=== PATIENT | female | born 1975 | race Caucasian/White ===

== ENCOUNTER 2023-09-13 22:52 | Emergency (ER) | payer OTHER, SELFPAY ==
[2023-09-14] MEDS ORDERED: KETOROLAC 30 MG/ML INJ ONE (00:30)
[2023-09-14] MEDS ORDERED: NA CHLORIDE 0.9% 1,000 ML ONE (00:30)
[2023-09-14] MEDS ORDERED: ONDANSETRON 4 MG/2 ML VIAL ONE (00:30)
[2023-09-14 00:41] LABS: Absolute Basophils 0.1 K/uL (0-0.5); Absolute Eosinophils 0.4 K/uL (0-0.5); Absolute Lymphocytes (CBC) 1.7 K/uL (0.7-4.9); Absolute Monocytes 0.6 K/uL (0.1-1.3); Absolute Neutrophil 5.3 K/uL (1.8-8.0); Eosinophils % 5.2 % (0-4.4); Hematocrit 34.5 % (36.0-45.0); Hemoglobin 11.2 g/dL (12.0-15.0); Lymphocytes % 21.3 % (15.3-44.8); MCH 26.4 pg (27.0-35.0); MCHC 32.5 g/dL (32.0-36.0); MCV 81.1 fL (80-100); MPV 8.5 fL (7.6-11.3); Monocytes % 7.5 % (3.3-12.3); Nucleated Red Blood Cells % 0.1 % (0-0); Platelets 315 thou/uL (152-406); RBC Red Blood Cell Count 4.26 M/uL (3.86-4.86); Red Cell Distribution Width 17.7 % (12.1-15.2)
[2023-09-14 00:59] LABS: Albumin/Globulin Ratio 0.7 (1.1-1.8); Anion Gap 8.4 mEq/L (5.0-15.0); Bilirubin Total 0.2 mg/dL (0.2-1.0); C-Reactive Protein 28.6 mg/L (<3.00); Globulin 4.2 g/dL (2.3-3.5); Protein, Total 7.2 g/dL (6.4-8.2)
[2023-09-14] MEDS ORDERED: PROMETHAZINE 25 MG TABLET ONE (01:04)
[2023-09-14] MEDS ORDERED: HYDROCODONE/APAP 5/325 MG TAB ONE (01:04)
[2023-09-14 01:07] LABS: Potassium 4.4 mEq/L (3.5-5.1)
[2023-09-14] MEDS ORDERED: METOCLOPRAMIDE 10 MG/2mL INJ ONE (02:11)
[2023-09-14 04:29] LABS: Urine Bacteria None Seen /HPF (<20); Urine Bilirubin NEGATIVE (Negative); Urine Blood 2+ (Negative); Urine Clarity Clear (Clear); Urine Color Light-Yellow (Yellow); Urine Culture Reflex Order REFLEXED; Urine Glucose NEGATIVE (Negative); Urine Ketones NEGATIVE (Negative); Urine Microscopic Reflex YN ORDER UMIC; Urine Nitrite NEGATIVE (Negative); Urine Protein NEGATIVE (Negative); Urine RBC 21-50 /HPF (None Seen); Urine Urobilinogen Normal (Normal); Urine pH 6.5 (5.0-7.0)
--- NOTE | 2023-09-14 05:02 | ER ---
Nurse's Notes [facility] Name: Trinity Michel Age: 48 yrs Sex: Female : 1975 Arrival Date: 09/13/2023 Time: 22:52 Bed 6 Private MD: Diagnosis: Lower abdominal pain, unspecified Presentation: 09/12 23:01 Chief complaint: Patient states: lower abdominal pain and lower back. Coronavirus vc1 screen: At this time, the client does not indicate any symptoms associated with coronavirus-19. Ebola Screen: Patient negative for fever greater than or equal to 101.5 degrees Fahrenheit, and additional compatible Ebola Virus Disease symptoms Patient denies exposure to infectious person. Patient denies travel to an Ebola-affected area in the 21 days before illness onset. No symptoms or risks identified at this time. Risk Assessment: Do you want to hurt yourself or someone else? Patient reports no desire to harm self or others. Onset of symptoms is unknown. 23:01 Method Of Arrival: Ambulatory vc1 23:01 Acuity: CAMERON 3 vc1 23:05 Initial Sepsis Screen: Does the patient meet any 2 criteria? No. Patient's initial vc1 sepsis screen is negative. Does the patient have a suspected source of infection? No. Patient's initial sepsis screen is negative. Triage Assessment: 23:05 General: Appears in no apparent distress. uncomfortable, Behavior is cooperative. Pain: vc1 Complains of pain in left low back, right low back, right lower quadrant and left lower quadrant Pain does not radiate. Pain currently is 10 out of 10 on a pain scale. Quality of pain is described as sharp. GI: Abdomen is round non-distended, Reports lower abdominal pain, nausea, vomiting. : Reports pain lower quadrant(s) in lower back urinary frequency. 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 - Infectious Disease History:: Denies. - Social history:: Smoking status: Reported history of juuling and/or vaping. Patient/guardian denies using street drugs. Screenin/21 00:51 [facility] ED Fall Risk Assessment (Adult) History of falling in the last 3 months, tm6 including since admission No falls in past 3 months (0 pts) Confusion or Disorientation No (0 pts) Intoxicated or Sedated No (0 pts) Impaired Gait No (0 pts) Mobility Assist Device Used No (0 pt) Altered Elimination No (0 pt) Score/Fall Risk Level 0 - 2 = Low Risk Oriented to surroundings, Maintained a safe environment. Abuse screen: Denies threats or abuse. Denies injuries from another. Nutritional screening: No deficits noted. Tuberculosis screening: No symptoms or risk factors identified. Assessment: 00:51 General: Appears distressed, Behavior is fussy, uncooperative. Pain: Complains of pain tm6 in abdomen and back and left lower quadrant and right lower quadrant and right low back and left low back Pain currently is 10 out of 10 on a pain scale. Quality of pain is described as sharp. Neuro: Level of Consciousness is awake, alert, obeys commands, Oriented to person, place, time, situation. Cardiovascular: No deficits noted. Patient's skin is warm and dry. Respiratory: Airway is patent Respiratory effort is even, unlabored, Respiratory pattern is regular, symmetrical. GI: Abdomen is obese, Bowel sounds present X 4 quads. Abd is soft Abdomen is tender to palpation in right lower quadrant and left lower quadrant. : No signs and/or symptoms were reported regarding the genitourinary system. EENT: No signs and/or symptoms were reported regarding the EENT system. Derm: No signs and/or symptoms reported regarding the dermatologic system. Musculoskeletal: No signs and/or symptoms reported regarding the musculoskeletal system. 02:43 Reassessment: pt is resting with eyes closed breathing is even unlabored, easily bm8 arousable. Encouraged pt to go to restroom to provide urine sample as soon as possible. 04:58 Reassessment: Patient appears in no apparent distress at this time. Patient and/or bm8 family updated on plan of care and expected duration. Pain level reassessed. Patient is alert, oriented x 3, equal unlabored respirations, skin warm/dry/pink. Patient denies pain at this time. Patient states feeling better. Patient states symptoms have improved. Vital Signs: 09/12 23:05 Weight 124.74 kg; Height 5 ft. 5 in. ; Pain 8/10; vc1 23:08 BP 135 / 85; Pulse 88; Resp 20; Temp 97.6; Pulse Ox 99% ; vc1 09/13 00:54 BP 106 / 71; Pulse 92; Pulse Ox 98% on R/A; Pain 10/10; tm6 02:43 BP 113 / 67; Pulse 90; Resp 18; Temp 97.6; Pulse Ox 97% ; Pain 3/10; bm8 04:58 BP 115 / 65; Pulse 65; Resp 17; Temp 97.5; Pulse Ox 98% ; Pain 0/10; bm8 09/12 23:05 Body Mass Index 45.76 (124.74 kg, 165.1 cm) vc1 09/12 23:05 Pain Scale: Adult vc1 09/13 00:54 Pain Scale: Adult tm6 02:43 Pain Scale: Adult bm8 04:58 Pain Scale: Adult bm8 ED Course: 09/12 22:52 Patient arrived in ED. jj6 23:00 Ilan Tavarez MD is Attending Physician. sp4 23:02 Triage completed. vc1 23:05 Arm band placed on right wrist. vc1 09/13 00:05 Radiology exam delayed due to lab results not completed at this time. (BUN/Creatinine) eh4 IV insertion attempt and/or patient not having appropriate IV at this time. 00:29 Sally Garcia, RN is Primary Nurse. tm6 00:33 Inserted saline lock: 20 gauge in right antecubital area, using aseptic technique. oe Blood collected. 00:47 CT Abd/Pelvis - IV Contrast Only In Process Unspecified. EDMS 00:50 Urinalysis w/ reflexes Sent. tm6 00:50 Lipase Sent. tm6 00:50 CMP Sent. tm6 00:50 CRP Sent. tm6 00:51 Patient has correct armband on for positive identification. Placed in gown. Bed in low tm6 position. Call light in reach. Side rails up X 1. Provided Education on: plan of care. Client placed on continuous cardiac and pulse oximetry monitoring. NIBP monitoring applied. Pulse ox on. NIBP on. Door closed. Noise minimized. Lights dimmed. Warm blanket given. 02:43 No provider procedures requiring assistance completed. bm8 05:06 IV discontinued, intact, bleeding controlled, No redness/swelling at site. Pressure bm8 dressing applied. Administered Medications: 00:50 Drug: NS 0.9% IV 1000 ml IV at 1 bolus Per protocol; 1000 mL bolus Route: IV; Rate: 1 tm6 bolus; Site: right antecubital; 05:07 Follow up: Response: No adverse reaction; IV Status: Completed infusion; IV Intake: bm8 1000ml 00:50 Drug: TORadol - Ketorolac IVP 30 mg IVP once Route: IVP; Site: right antecubital; tm6 01:15 Follow up: Response: No adverse reaction bm8 00:50 Drug: Ondansetron IVP 4 mg IVP once; over 2 minutes Route: IVP; Site: right antecubital;tm6 01:15 Follow up: Response: No adverse reaction bm8 01:14 Drug: [place] PO 5 mg-325 mg 2 tabs PO once Route: PO; bm8 02:47 Follow up: Response: No adverse reaction bm8 01:14 Drug: Promethazine PO 25 mg PO once Route: PO; bm8 02:47 Follow up: Response: No adverse reaction bm8 02:15 Drug: metoCLOPramide IVP 10 mg IVP once; over 1 to 2 minutes Route: IVP; Site: right bm8 antecubital; 02:47 Follow up: Response: No adverse reaction bm8 Medication: 00:51 VIS not applicable for this client. tm6 Intake: 05:07 IV: 1000ml; Total: 1000ml. bm8 Outcome: 05:01 Discharge ordered by . sp4 05:06 Discharged to home ambulatory, bm8 05:06 Condition: stable 05:06 Discharge instructions given to patient, Instructed on discharge instructions, follow up and referral plans. medication usage, safety practices, Demonstrated understanding of instructions, follow-up care, medications, 05:06 Patient left the ED. bm8 Signatures: Dispatcher [employer] EDMS Yosef George Jennifer [id number] Sonja Shanks RN RN 1 Thor Hernandez [facility] Ilan Tavarez MD MD sp4 Sally Garcia RN RN tm6 Moreno Linder RN RN bm8 Corrections: (The following items were deleted from the chart) 02:41 02:40 metoCLOPramide IVP 10 mg IVP in right antecubital bm8 bm8 04:47 00:51 General: Appears distressed, Behavior is cooperative, fussy, tm6 tm6
--- NOTE | 2023-09-14 05:02 | EDPHYS ---
Physician Documentation [facility] Name: Trinity Michel Age: 48 yrs Sex: Female : 1975 Arrival Date: 09/13/2023 Time: 22:52 Bed 6 Private MD: ED Physician Ilan Tavarez HPI: 09/12 23:00 This 49 yrs old Female presents to ER via Unassigned with complaints of sp4 Abdominal Pain. CLINICAL RESEARCH SPEC: 23:07 LMP N/A - Post-menopause, Not vc1 Historical: - Allergies: 23:03 No Known Allergies; vc1 - Home Meds: 23:03 loratadine oral [Active]; amlodipine oral [Active]; vc1 - PMHx: 23:03 Hypertensive disorder; vc1 - PSHx: 23:03 None; vc1 - Immunization history:: Client reports receiving the 2nd dose of the Covid vaccine, Flu vaccine is not up to date. - Infectious Disease History:: Denies. - Social history:: Smoking status: Reported history of juuling and/or vaping. Patient/guardian denies using street drugs. Vital Signs: 23:05 Weight 124.74 kg; Height 5 ft. 5 in. ; Pain 8/10; vc1 23:08 BP 135 / 85; Pulse 88; Resp 20; Temp 97.6; Pulse Ox 99% ; vc1 09/13 00:54 BP 106 / 71; Pulse 92; Pulse Ox 98% on R/A; Pain 10/10; tm6 02:43 BP 113 / 67; Pulse 90; Resp 18; Temp 97.6; Pulse Ox 97% ; Pain 3/10; bm8 04:58 BP 115 / 65; Pulse 65; Resp 17; Temp 97.5; Pulse Ox 98% ; Pain 0/10; bm8 09/12 23:05 Body Mass Index 45.76 (124.74 kg, 165.1 cm) vc1 09/12 23:05 Pain Scale: Adult vc1 09/13 00:54 Pain Scale: Adult tm6 02:43 Pain Scale: Adult bm8 04:58 Pain Scale: Adult bm8 MDM: 09/12 23:06 Patient medically screened. sp4 09/12 23:05 Order name: CBC with Diff; Complete Time: 01:02 sp4 09/12 23:05 Order name: CMP; Complete Time: 03:21 sp4 09/12 23:05 Order name: Lipase; Complete Time: 03:21 sp4 09/12 23:05 Order name: Urinalysis w/ reflexes; Complete Time: 05:00 sp4 09/12 23:05 Order name: CRP; Complete Time: 03:21 sp4 09/13 02:21 Order name: CREATININE WHOLE BLOOD; Complete Time: 03:21 EDMS 09/13 04:33 Order name: Urine Culture EDMS 09/12 23:05 Order name: CT Abd/Pelvis - IV Contrast Only sp4 09/12 23:05 Order name: IV Saline Lock; Complete Time: 00:50 sp4 09/12 23:05 Order name: Labs collected and sent; Complete Time: 00:50 sp4 Administered Medications: 09/13 00:50 Drug: NS 0.9% IV 1000 ml IV at 1 bolus Per protocol; 1000 mL bolus Route: IV; Rate: 1 tm6 bolus; Site: right antecubital; 05:07 Follow up: Response: No adverse reaction; IV Status: Completed infusion; IV Intake: bm8 1000ml 00:50 Drug: TORadol - Ketorolac IVP 30 mg IVP once Route: IVP; Site: right antecubital; tm6 01:15 Follow up: Response: No adverse reaction bm8 00:50 Drug: Ondansetron IVP 4 mg IVP once; over 2 minutes Route: IVP; Site: right antecubital;tm6 01:15 Follow up: Response: No adverse reaction bm8 01:14 Drug: [place] PO 5 mg-325 mg 2 tabs PO once Route: PO; bm8 02:47 Follow up: Response: No adverse reaction bm8 01:14 Drug: Promethazine PO 25 mg PO once Route: PO; bm8 02:47 Follow up: Response: No adverse reaction bm8 02:15 Drug: metoCLOPramide IVP 10 mg IVP once; over 1 to 2 minutes Route: IVP; Site: right bm8 antecubital; 02:47 Follow up: Response: No adverse reaction bm8 Disposition Summary: 09/14/23 05:01 Discharge Ordered Notes: Location: Home sp4 Problem: new sp4 Symptoms: have improved sp4 Condition: Stable sp4 Diagnosis - Lower abdominal pain, unspecified sp4 Followup: sp4 - With: Private Physician - When: 7 - 10 days - Reason: Recheck today's complaints Discharge Instructions: - Discharge Summary Sheet sp4 - Abdominal Pain, Adult, [id number] sp4 Signatures: Dispatcher [employer] EDSonja Jason RN RN vc1 Ilan Tavarez MD MD sp4 Sally Garcia RN RN tm6 Moreno Linder RN RN bm8 Corrections: (The following items were deleted from the chart) 09/12 23:06 23:06 CBC+H.LAB.BRZ ordered. EDMS EDMS 23: 23:06 COMPREHENSIVE METABOLIC PANEL+C.LAB.BRZ ordered. EDMS EDMS 23:06 23:06 LIPASE+C.LAB.BRZ ordered. EDMS EDMS 23:06 23:06 Urinalysis+U.LAB.BRZ ordered. EDMS EDMS 23:06 23:06 Abdomen Pelvis W Con+CT.RAD.BRZ ordered. EDMS EDMS 23:06 23:06 C-REACTIVE PROTEIN+C.LAB.BRZ ordered. EDMS EDMS
[2023-09-14 05:55] VITALS: BP 115/65; TEMP 97.5; O2SAT 98
--- NOTE | 2023-09-14 19:53 | RAD REPORT ---
EXAM DESCRIPTION: CT - Abdomen Pelvis W Contrast - 09/14/2023 6:52 am CLINICAL HISTORY: Lower abd and back pain COMPARISON: None Available. TECHNIQUE: CT of the abdomen and pelvis performed following the administration of IV contrast. No or al contrast. This exam was performed according to our departmental dose-optimization program, which i ncludes automated exposure control, adjustment of the mA and/or kV according to patient size and/or u se of iterative reconstruction technique. FINDINGS: Lung Bases: Motion artifact. Mild atelectasis. Abdomen: Liver: The liver has normal contour and density. No suspicious mass. Gallbladder: Surgically absent. No significant biliary dilatation. Spleen, Pancreas, and Adrenal Glands: The spleen, pancreas, and adrenal glands are unremarkable. Kidneys: No suspicious mass. No urinary tract calculi. No hydronephrosis. Vasculature: The aorta and IVC have normal caliber and position. Portal vein is patent. Stomach: Postsurgical changes without suspicious abnormality. Other: No free intraperitoneal air. No free fluid or lymphadenopathy. Pelvis: Bladder: Filled with contrast. No filling defect identified. Bowel: No bowel obstruction. Moderate stool in the colon. Postsurgical changes involving small karl l loops in the right abdomen. Appendix: Normal appendix. Pelvis: No suspicious mass. Bones: No destructive bone lesions identified. IMPRESSION: No acute abnormality on CT of the abdomen and pelvis. Electronically signed by: Rhonda Osborn MD 09/14/2023 01:21 AM CDT Due to temporary technical issues with the PACS/Fluency reporting system, reports are being signed by the in house radiologists without review as a courtesy to insure prompt reporting. The interpreting radiologist is fully responsible for the content of the report.
== END 2023-09-14 05:06 | disposition home or self-care (01) ==
LOC: EDBD 22:52 → ER 22:52
DX: R10.30 Lower abdominal pain, unspecified (principal); I10 Essential (primary) hypertension
CPT/HCPCS: 96361; 87088; 85025; 81001; 87086; 36415; 82565; 87077; 87186; 83690; 80053; 86140; 74177; 96375; 96374; 99284; Q9967; Q0169; J2765; J2405; J7030